=== PATIENT | male | born 2000 | race Caucasian/White ===

== ENCOUNTER 2022-12-06 16:24 | Emergency (ER) | payer OTHER, BC ==
[~2022-12-06] VITALS: Ht 177.8 cm; Wt 95.2 kg
[2022-12-06 16:48] LABS: BASOPHILS % (AUTO) 1 % (0-10); EOSINOPHILS # (AUTO) 0.2 10^3/uL (0.0-0.3); EOSINOPHILS % (AUTO) 3 % (0-10); HEMATOCRIT 44 % (40-54); HEMOGLOBIN 14.8 g/dL (13.3-17.7); LYMPHOCYTES # (AUTO) 2.4 10^3/uL (1.0-4.0); LYMPHOCYTES % (AUTO) 33 % (12-44); MEAN CORPUSCULAR HEMOGLOBIN 29 pg (25-34); MEAN CORPUSCULAR HGB CONC 34 g/dL (32-36); MEAN CORPUSCULAR VOLUME 86 fL (80-99); MEAN PLATELET VOLUME 11.6 fL (9.0-12.2); MONOCYTES # (AUTO) 0.6 10^3/uL (0.0-1.0); MONOCYTES % (AUTO) 8 % (0-12); NEUTROPHILS % (AUTO) 55 % (42-75); PLATELET COUNT 229 10^3/uL (130-400); WHITE BLOOD COUNT 7.3 10^3/uL (4.3-11.0)
[2022-12-06 16:55] LABS: BILIRUBIN,URINE NEGATIVE (NEGATIVE); CLARITY,URINE CLEAR; COLOR,URINE YELLOW; GLUCOSE, URINE (UA) NEGATIVE (NEGATIVE); KETONES,URINE NEGATIVE (NEGATIVE); LEUKOCYTE ESTERASE ,URINE NEGATIVE (NEGATIVE); NITRITE,URINE NEGATIVE (NEGATIVE); PROTEIN,URINE TRACE (NEGATIVE)
[2022-12-06 17:08] LABS: BACTERIA,URINE TRACE /HPF; RBC,URINE 0-2 /HPF
--- NOTE | 2022-12-06 17:09 | ED Neurological Problem ---
General Chief Complaint: Neurological Problems Stated Complaint: SEIZURE Nursing Triage Note: PT TO [facility] BY [facility] FROM WORK WITH C/O WITNESSED 20-30 SECOND SEIZURE BY COWORKERS. PT DENIES HX OF SEIZURES. PT DOES NOT REMEMBER BEING AT WORK TODAY. PT DENIES FALLING OR HITTING HEAD Source: patient Exam Limitations: no limitations History of Present Illness Date Seen by Provider: Dec 06, 2022 Time Seen by Provider: 16:25 Initial Comments This 22-year-old young man presents to the emergency room via EMS from the local [employer] where he works. He reportedly had a brief generalized seizure. Coworkers saw him stare off and become unresponsive just prior to falling off a stool and convulsing. Episode lasted less than 1 minute. He appeared postictal for EMS with disorientation. He is mildly disoriented on arrival. He did lose urinary continence. Blood sugar was 107. Patient has never had any seizure- like episodes in the past. He denies any drug, alcohol, or other substance abuse. There were no flashing lights or other unusual stimuli in the area where he was worked.. He denies any notable injury or pain from falling off the stool. Allergies and Home Medications Patient Home Medication List Home Medication List Reviewed: Yes Midazolam (Nayzilam) 5 Mg/[place] (0.1 Ml) [place], 5 MG NS UD PRN for SEIZURE ACTIVITY Prescribed by: HUY WHALEY on 12/07/22 1548 Review of Systems Review of Systems Constitutional: no symptoms reported Eyes: No Symptoms Reported Ears, Nose, Mouth, Throat: no symptoms reported Respiratory: no symptoms reported Cardiovascular: no symptoms reported Gastrointestinal: no symptoms reported Genitourinary: see HPI Musculoskeletal: no symptoms reported Skin: no symptoms reported Psychiatric/Neurological: See HPI Endocrine: No Symptoms Reported Hematologic/Lymphatic: No Symptoms Reported Past Epzkpjm-Ujgkzu-Tyxqsy Hx Patient Social History Tobacco Use?: No Use of E-Cig and/or Vaping dev: No Substance use?: No Alcohol Use?: Yes Alcohol Frequency: Once in a while Pt feels they are or have been: No Immunizations Up To Date Influenza Vaccine Up-to-Date: No; Not Current Past Medical History Surgery/Hospitalization HX: ORTHO SURGERY Surgeries: Yes Orthopedic Respiratory: No Cardiac: No Neurological: No Genitourinary: No Gastrointestinal: No Musculoskeletal: No Endocrine: No HEENT: No Cancer: No Did You Recieve Any Treatments: No Psychosocial: No Integumentary: No Physical Exam Vital Signs Vital Signs - First Documented 12/06/22 16:26 Temp 36.6 Pulse 129 Resp 18 B/P (MAP) 147/60 (89) Capillary Refill : Height, Weight, BMI Height: '" Weight: lbs. oz. kg; 30.00 BMI Method: General Appearance: WD/WN, no apparent distress HEENT: PERRL/EOMI, normal ENT inspection, TMs normal, pharynx normal Neck: non-tender, normal inspection Respiratory: lungs clear, normal breath sounds, no respiratory distress Cardiovascular: regular rate, rhythm, no edema, no murmur Gastrointestinal: normal bowel sounds, non tender, soft Genital/Rectal: other (Pants urine soaked from loss of continence) Extremities: normal inspection, no pedal edema Neurologic/Psychiatric: framer II-XII nml as tested, no motor/sensory deficits, alert, normal mood/affect, other (Initially disoriented to month, place, and year, but this resolved with time) Crainal Nerves: normal hearing, normal speech Motor/Sensory: no motor deficit, no sensory deficit Skin: normal color, warm/dry Progress/Results/Core Measures Results/Orders Lab Results Laboratory Tests Test 12/06/22 16:40 12/06/22 16:49 12/06/22 17:21 Range/Units White Blood Count 7.3 4.3-11.0 10^3/uL Red Blood Count 5.08 4.30-5.52 10^6/uL Hemoglobin 14.8 13.3-17.7 g/dL Hematocrit 44 40-54 % Mean Corpuscular Volume 86 80-99 fL Mean Corpuscular Hemoglobin 29 25-34 pg Mean Corpuscular Hemoglobin Concent 34 32-36 g/dL Red Cell Distribution Width 12.7 10.0-14.5 % Platelet Count 229 130-400 10^3/uL Mean Platelet Volume 11.6 9.0-12.2 fL Immature Granulocyte % (Auto) 2 % Neutrophils (%) (Auto) 55 42-75 % Lymphocytes (%) (Auto) 33 12-44 % Monocytes (%) (Auto) 8 0-12 % Eosinophils (%) (Auto) 3 0-10 % Basophils (%) (Auto) 1 0-10 % Neutrophils # (Auto) 4.0 1.8-7.8 10^3/uL Lymphocytes # (Auto) 2.4 1.0-4.0 10^3/uL Monocytes # (Auto) 0.6 0.0-1.0 10^3/uL Eosinophils # (Auto) 0.2 0.0-0.3 10^3/uL Basophils # (Auto) 0.0 0.0-0.1 10^3/uL Immature Granulocyte # (Auto) 0.1 0.0-0.1 10^3/uL Urine Color YELLOW Urine Clarity CLEAR Urine pH 6.0 5-9 Urine Specific [place] 1.025 H 1.016-1.022 Urine Protein TRACE H NEGATIVE Urine Glucose (UA) NEGATIVE NEGATIVE Urine Ketones NEGATIVE NEGATIVE Urine Nitrite NEGATIVE NEGATIVE Urine Bilirubin NEGATIVE NEGATIVE Urine Urobilinogen 0.2 < = 1.0 MG/DL Urine Leukocyte Esterase NEGATIVE NEGATIVE Urine RBC (Auto) TRACE-I H NEGATIVE Urine RBC 0-2 /HPF Urine WBC NONE /HPF Urine Squamous Epithelial Cells NONE /HPF Urine Crystals PRESENT H /LPF Urine Amorphous Sediment FEW GREG URATES H /LPF Urine Bacteria TRACE /HPF Urine Casts PRESENT /LPF Urine Hyaline Casts 2-5 H /LPF Urine Mucus SMALL H /LPF Urine Culture Indicated NO Urine Opiates Screen NEGATIVE NEGATIVE Urine Oxycodone Screen NEGATIVE NEGATIVE Urine Methadone Screen NEGATIVE NEGATIVE Urine Propoxyphene Screen NEGATIVE NEGATIVE Urine Barbiturates Screen NEGATIVE NEGATIVE Ur Tricyclic Antidepressants Screen NEGATIVE NEGATIVE Urine Phencyclidine Screen NEGATIVE NEGATIVE Urine Amphetamines Screen NEGATIVE NEGATIVE Urine Methamphetamines Screen NEGATIVE NEGATIVE Urine Benzodiazepines Screen NEGATIVE NEGATIVE Urine Cocaine Screen NEGATIVE NEGATIVE Urine Cannabinoids Screen NEGATIVE NEGATIVE Sodium Level 139 135-145 MMOL/L Potassium Level 3.8 3.6-5.0 MMOL/L Chloride Level 105 98-107 MMOL/L Carbon Dioxide Level 22 21-32 MMOL/L Anion Gap 12 5-14 MMOL/L Blood Urea Nitrogen 12 7-18 MG/DL Creatinine 0.94 0.60-1.30 MG/DL Estimat Glomerular Filtration Rate 118 BUN/Creatinine Ratio 13 Glucose Level 96 70-105 MG/DL Calcium Level 9.2 8.5-10.1 MG/DL Corrected Calcium 9.0 8.5-10.1 MG/DL Magnesium Level 2.3 1.6-2.4 MG/DL Total Bilirubin 0.6 0.1-1.0 MG/DL Aspartate Amino Transf (AST/SGOT) 23 5-34 U/L Alanine Aminotransferase (ALT/SGPT) 22 0-55 U/L Alkaline Phosphatase 88 40-136 U/L Total Creatine Kinase 173 30-200 U/L Total Protein 7.9 6.4-8.2 GM/DL Albumin 4.3 3.2-4.5 GM/DL TSH [place] Testing 3.19 0.35-4.94 UIU/ML Salicylates Level < 5.0 L 5.0-20.0 MG/DL Acetaminophen Level < 10 L 10-30 UG/ML Serum Alcohol < 10 <10 MG/DL My Orders Orders - HUY ROA MD Acetaminophen (12/06/22 16:33) Alcohol (12/06/22 16:33) Cbc With Automated Diff (12/06/22 16:33) Comprehensive Metabolic Panel (12/06/22 16:33) Creatine Kinase (12/06/22 16:33) Drug Screen Stat (Urine) (12/06/22 16:33) Magnesium (12/06/22 16:33) Salicylate (12/06/22 16:33) Thyroid Analyzer (12/06/22 16:33) Ua Culture If Indicated (12/06/22 16:33) Ed Iv/Invasive Line Start (12/06/22 16:33) Ct Head Wo (12/06/22 16:33) Vital Signs/I&O 12/06/22 12/06/22 16:26 19:20 Temp 36.6 36.6 Pulse 129 95 Resp 18 18 B/P (MAP) 147/60 (89) 138/68 Blood Pressure Mean: 89 Progress Progress Note : Progress Note Work-up was unremarkable which included labs, urinalysis, toxicology screen, and CT of the head. All labs were reviewed by me including CBC, CMP, thyroid analyzer, CK, urinalysis, and toxicology screen. Radiologist CT report was reviewed. Patient was discharged in improved condition with family. Seizure precautions were reviewed. Nasal Versed for of prolonged or repeated seizures was prescribed. See discharge instructions for further discussion. Diagnostic Imaging Diagonstic Imaging: CT Plain Films/CT/US/NM/MRI: head Comments NAME: HUY SIMPSON MED REC#: [id number] PT STATUS: DEP ER : 2000 PHYSICIAN: HUY ROA MD ADMIT DATE: 12/06/22/ER Signed Date of Exam:12/06/22 CT HEAD WO PROCEDURE: CT head without contrast. TECHNIQUE: Multiple contiguous axial images were obtained through the brain without the use of intravenous contrast. Auto Exposure Controls were utilized during the CT exam to meet ALARA standards for radiation dose reduction. INDICATION: New onset seizures. COMPARISON: None. FINDINGS: Ventricles and cortical sulci are age-appropriate. There is no midline shift or mass effect. No acute intracranial hemorrhage is seen. There is no CT evidence of acute territorial ischemia. The calvarium appears intact. Visualized paranasal sinuses are clear. IMPRESSION: No acute intracranial hemorrhage or CT evidence of acute territorial ischemia. Dictated by: Dictated on workstation # [id number] Dict: 12/06/22 1716 Trans: 12/06/221937 [id number] Interpreted by: FRANKY ROBERTS MD Electronically signed by: FRANKY ROBERTS MD 12/06/221937 Departure Impression Primary Impression: New onset seizure Disposition: 01 HOME, SELF-CARE Condition: Improved Departure-Patient Inst. Decision time for Depature: 18:59 Patient Instructions: Seizures, Adult ED Add. Discharge Instructions: Follow-up with a primary care provider as soon as possible. Discussed whether referral to a neurologist is necessary at this time. Avoid any activities that could present significant danger to you or others should you have another seizure. Examples include driving, operating machinery, using heights such as ladders, horseback riding, swimming, etc. Familiarize yourself with triggers that lower seizure threshold such as sleep deprivation, stress, fever, flashing lights, psychosocial stressors, etc. Try to avoid those things within reason. You may use the nasal diazepam as prescribed for repetitive seizures or any seizure lasting more than 5 minutes. Return to the emergency room or call 911 if you have prolonged seizure lasting more than 5 minutes, repeated seizures, or complications from seizure such as physical injuries. By state law, you may not drive for at least 6 months after having a seizure in the [facility]. Return to care if you have any other urgent health concerns. All discharge instructions reviewed with patient and/or family. Voiced understanding. Scripts Midazolam (Nayzilam) 5 Mg/[place] (0.1 Ml) [place] 5 MG NS UD PRN for SEIZURE ACTIVITY, #2 EA For seizure lasting more than 5 minutes or repeated seizures. Go to ER or call 911 if given. Prov: HUY ROA MD 12/07/22 Work/School Note: Work Release Form Date Seen in the Emergency Department: Dec 06, 2022 Return to Work: Dec 10, 2022 Other Restrictions Listed Below: Seizure precautions. Restrictions: No driving, climbing, machinary, swimming, etc. until cleared. HUY ROA MD Dec 06, 2022 17:09
[2022-12-06 17:10] LABS: AMORPHOUS SEDIMENT,UR FEW AMOR URATES /LPF
[2022-12-06 17:13] LABS: AMPHETAMINE SCREEN, URINE NEGATIVE (NEGATIVE); BARBITURATE SCREEN URINE NEGATIVE (NEGATIVE); BENZODIAZEPINES SCREEN URINE NEGATIVE (NEGATIVE); CANNABINOID SCREEN, URINE NEGATIVE (NEGATIVE); COCAINE SCREEN URINE NEGATIVE (NEGATIVE); METHADONE STAT NEGATIVE (NEGATIVE); OPIATE SCREEN URINE NEGATIVE (NEGATIVE); OXYCODONE STAT NEGATIVE (NEGATIVE); PROPOXYPHENE STAT NEGATIVE (NEGATIVE); TRICYCLIC ANTIDEPRESSANTS SCRE NEGATIVE (NEGATIVE)
--- NOTE | 2022-12-06 17:26 | Diagnostic Imaging Report ---
PROCEDURE: CT head without contrast. TECHNIQUE: Multiple contiguous axial images were obtained through the brain without the use of intravenous contrast. Auto Exposure Controls were utilized during the CT exam to meet ALARA standards for radiation dose reduction. INDICATION: New onset seizures. COMPARISON: None. FINDINGS: Ventricles and cortical sulci are age-appropriate. There is no midline shift or mass effect. No acute intracranial hemorrhage is seen. There is no CT evidence of acute territorial ischemia. The calvarium appears intact. Visualized paranasal sinuses are clear. IMPRESSION: No acute intracranial hemorrhage or CT evidence of acute territorial ischemia. Dictated by: Dictated on workstation # [id number]
[2022-12-06 17:37] LABS: ALBUMIN 4.3 GM/DL (3.2-4.5); CHLORIDE 105 MMOL/L (98-107); POTASSIUM 3.8 MMOL/L (3.6-5.0); SODIUM 139 MMOL/L (135-145)
[2022-12-06 17:39] LABS: CALCIUM 9.2 MG/DL (8.5-10.1)
[2022-12-06 17:40] LABS: GLUCOSE 96 MG/DL (70-105); TOTAL PROTEIN 7.9 GM/DL (6.4-8.2)
[2022-12-06 17:41] LABS: CARBON DIOXIDE 22 MMOL/L (21-32)
[2022-12-06 17:42] LABS: BILIRUBIN,TOTAL 0.6 MG/DL (0.1-1.0)
[2022-12-06 17:44] LABS: ALKALINE PHOSPHATASE 88 U/L (40-136); CREATININE SERUM 0.94 MG/DL (0.60-1.30); GFR ESTIMATED 118
[2022-12-06 17:45] LABS: BUN/CREATININE RATIO 13
[2022-12-06 17:46] LABS: SALICYLATE < 5.0 MG/DL (5.0-20.0)
[2022-12-06 17:47] LABS: ALANINE AMINOTRANSFERASE 22 U/L (0-55); CREATINE KINASE 173 U/L (30-200); MAGNESIUM 2.3 MG/DL (1.6-2.4)
[2022-12-06 17:50] LABS: ACETAMINOPHEN < 10 UG/ML (10-30)
[2022-12-06 18:07] LABS: TSH (THYROID ANALYZER) 3.19 UIU/ML (0.35-4.94)
[2022-12-06] MEDS ORDERED: DIAZ10SP NS (19:07)
[2022-12-06 19:20] VITALS: BP 138/68
[2022-12-07] MEDS ORDERED: MIDA5SPR NS (15:48)
== END 2022-12-06 19:23 | disposition home or self-care (01) ==
LOC: ER 16:25
DX: R56.9 Unspecified convulsions (principal)
CPT/HCPCS: 70450; 80053; 80306; 81000; 82550; 83735; 84443; 85025; 99283; G0480 ×3; 36415; 80320; 80329